=== PATIENT | male | born 1965 | race Caucasian/White ===

== ENCOUNTER 2018-04-10 14:10 | Inpatient (IN) | payer OTHER ==
[2018-04-10 14:39] VITALS: BMI 27.3
--- NOTE | 2018-04-10 15:18 | HP ---
COWS - Scale Resting Pulse: 0= [place] 80 or Below Sweatin= Chills/Flushing Restless Observation: 1= Difficult to Sit Still Pupil Size: 1= Pupils >than Normal Bone or Joint Aches: 2= Severe Diffuse Aches Runny Nose/ Eye Tearin= Runny Nose/Eyes GI Upset > 30mins: 2= Nausea/Diarrhea Tremor Observation: 2= Slight Tremor Visible Yawning Observation: 1= 1-2x During Session Anxiety or Irritability: 2=Irritable/Anxious Goose Flesh Skin: 0=Smooth Skin COWS Score: 14 Admission ROS S - HPI Chief Complaint: need help to stop using heroin,crack and marijuana Allergies/Adverse Reactions: Allergies Allergy/AdvReac Type Severity Reaction Status Date / Time No Known Allergies Allergy Verified 04/10/18 14:49 History of Present Illness: this 53 years old male with heroin,cocaine and marijuana dependence,seeking detox,withdrawal symptom,last dtox 2007 in [facility] seizure last 2 years ago pain in both knees s/p arthroscopic surgery right knee in 2011 no significant period of sobriety lesion of left index and right middle toe plan to go to working program after detox Exam Limitations: No Limitations - Ebola screening Have you traveled outside of the country in the last 21 days: No Have you had contact with anyone from an Ebola affected area: No Have you been sick,other than usual withdrawal symptoms: No Do you have a fever: No - Review of Systems Constitutional: Chills, Loss of Appetite, Malaise, Night Sweats, Changes in sleep, Weakness EENT: reports: Tearing, Nose Congestion Respiratory: reports: No Symptoms reported Cardiac: reports: No Symptoms Reported GI: reports: Nausea, Poor Appetite, Indigestion, Abdominal cramping : reports: No Symptoms Reported Musculoskeletal: reports: Joint Pain, Muscle Pain, Joint Stiffness Integumentary: reports: Dryness Neuro: reports: Headache, Tremors Endocrine: reports: No Symptoms Reported Hematology: reports: No Symptoms Reported Psychiatric: reports: No Sypmtoms Reported, Judgement Intact, Mood/Affect Appropiate, Orientated x3 Patient History - Patient Medical History Hx Anemia: No Hx Asthma: No Hx Chronic Obstructive Pulmonary Disease (COPD): No Hx Cancer: No Hx Cardiac Disorders: No Hx Congestive Heart Failure: No Hx Hypertension: No Hx Hypercholesterolemia: No Hx Pacemaker: No HX Cerebrovascular Accident: No Hx Seizures: Yes (last 2015) Hx Dementia: No Hx Diabetes: No Hx Gastrointestinal Disorders: No Hx Liver Disease: No Hx Genitourinary Disorders: No Hx Sexually Transmitted Disorders: No Hx Renal Disease (ESRD): No Hx Thyroid Disease: No Hx Human Immunodeficiency Virus (HIV): No (last 02/26 ) Hx Hepatitis C: No Hx Depression: No Hx Suicide Attempt: No Hx Bipolar Disorder: No Hx Schizophrenia: No Other Medical History: no sucidal,no homicidal - Patient Surgical History Past Surgical History: Yes Hx Orthopedic Surgery: Yes (arthroscopic surgery of right knee in 2011 fot torn meniscus) - PPD History Previous Implant?: Yes Documented Results: Negative w/o proof Implanted On Prior [facility] Admission?: No PPD to be Administered?: Yes - Smoking Cessation Smoking history: Current every day smoker Have you smoked in the past 12 months: Yes Aproximately how many cigarettes per day: 5 Hx Chewing Tobacco Use: No Initiated information on smoking cessation: Yes 'Breaking Loose' booklet given: 04/10/18 - Substance & Tx. History Hx Alcohol Use: No Hx Substance Use: Yes Substance Use Type: Cocaine, Heroin, Marijuana Hx Substance Use Treatment: Yes (2007 [facility]) - Substances Abused Heroin Route: Inhalation Frequency: Daily Amount used: 14 bags Age of first use: 22 Date of Last Use: 04/10/18 Crack Route: Smoking Frequency: 3-6 times per week Amount used: $20 Age of first use: 31 Date of Last Use: 04/09/18 Marijuana Route: Smoking Frequency: 3-6 times per week Amount used: $5 Age of first use: 22 Date of Last Use: 04/09/18 Family Disease History - Family Disease History Family History: Denies Admission Physical Exam S - Vital Signs Vital Signs: Vital Signs - 24 hr 04/10/18 14:37 Temperature 98.8 F Pulse Rate 58 L Respiratory 20 Rate Blood Pressure 122/72 - Physical General Appearance: Yes: Moderate Distress, Tremorous, Anxious HEENTM: Yes: Normal ENT Inspection, RUPERT, Pharynx Normal Respiratory: Yes: Lungs Clear, Normal Breath Sounds, No Respiratory Distress Neck: Yes: Within Normal Limits, Supple, Trachea in good position Breast: Yes: Within Normal Limits Cardiology: Yes: Regular Rhythm, Regular Rate, S1, S2, Bradycardia Abdominal: Yes: Within Normal Limits, Normal Bowel Sounds, Non Tender, Flat, Soft Genitourinary: Yes: Within Normal Limits Back: Yes: Muscle Spasm Musculoskeletal: Yes: Back pain, Muscle Pain Extremities: Yes: Tremors Neurological: Yes: paddock judge II-XII NML intact, Fully Oriented, Alert, Motor Strength 5/5 Integumentary: Yes: Dry Lymphatic: Yes: Within Normal Limits - Diagnostic (1) Opioid dependence with withdrawal Current Visit: Yes Status: Acute (2) Cocaine dependence Current Visit: Yes Status: Acute (3) Cannabis dependence Current Visit: Yes Status: Acute (4) Nicotine dependence Current Visit: Yes Status: Acute (5) Pain in both knees Current Visit: Yes Status: Acute (6) Status post arthroscopic surgery of right knee Current Visit: Yes Status: Acute (7) Abrasion of left index finger Current Visit: Yes Status: Acute Cleared for Admission [facility] - Detox or Rehab [facility] Level of Care: Medically Managed Detox Regimen/Protocol: Methadone [facility] Breath Alcohol Content Breath Alcohol Content: 0 Urine Drug Screen - Results Drug Screen Negative: No Urine Drug Screen Results: THC-Marijuana, NIK-Cocaine, OPI-Opiates, MTD- Methadone, OXY-Oxycodone, FEN-Fentanyl
[2018-04-10] MEDS ORDERED: MAG HYDROX/AL HYDROX/SIMETH 30 ML UNIT-DOSE CUP PO PRN (15:34)
[2018-04-10] MEDS ORDERED: MAGNESIUM HYDROX 2400MG/30ML ORAL SUSPENSION 30 ML CUP PO PRN (15:34)
[2018-04-10] MEDS ORDERED: P-EPHED 60MG/TRIPROLIDI 2.5MG TABLET PO PRN (15:34)
[2018-04-10] MEDS ORDERED: LOPERAMIDE HCL 2 MG CAPSULE PO PRN (15:34)
[2018-04-10] MEDS ORDERED: MENTHOL/PHENOL 1 EACH UD MM PRN (15:34)
[2018-04-10] MEDS ORDERED: MAGNESIUM CITRATE 300 ML BOTTLE PO PRN (15:34)
[2018-04-10] MEDS ORDERED: guaiFENesin/D-METHORPHAN HB 10 ML UNIT-DOSE CUPS PO PRN (15:34)
[2018-04-10] MEDS ORDERED: ACETAMINOPHEN 325 MG TABLET (FP) PO PRN (15:34)
[2018-04-10] MEDS ORDERED: IBUPROFEN 400 MG TABLET (FP) PO PRN (15:34)
[2018-04-10] MEDS ORDERED: METHADONE HCL 10 MG TABLET (FOR DETOX USE ONLY) PO ONE ×2 (16:00→23:00)
[2018-04-10] MEDS: diazePAM 5 MG TABLET PO PRN ×2 (16:49→22:07)
[2018-04-10] MEDS: CYCLOBENZAPRINE HCL 10 MG TABLET (FP) PO PRN ×2 (20:14→22:07)
[2018-04-10] MEDS: TOLNAFTATE 1% CREAM 15 GM TUBE TP SCH (22:06)
[2018-04-10] MEDS: THIAMINE HCL 100 MG TABLET (FP) PO SCH (22:07)
[2018-04-10] MEDS: cloNIDine HCL 0.1 MG TABLET PO SCH (22:07)
[2018-04-11 00:43] LABS: URINE APPEARANCE TURBID; URINE BILIRUBIN NEGATIVE (<2.0 mg/dL); URINE COLOR YELLOW; URINE GLUCOSE (UA) NEGATIVE (NEGATIVE); URINE KETONE NEGATIVE (NEGATIVE); URINE LEUK ESTERASE NEGATIVE (NEGATIVE); URINE NITRITE NEGATIVE (NEGATIVE); URINE PROTEIN NEGATIVE (NEGATIVE); URINE UROBILINOGEN NEGATIVE mg/dL (0.2-1.0)
[2018-04-11] MEDS: diazePAM 5 MG TABLET PO PRN ×4 (07:20→22:25)
[2018-04-11] MEDS ORDERED: METHADONE HCL 10 MG TABLET (FOR DETOX USE ONLY) PO ONE (10:00)
[2018-04-11] MEDS: PRENATAL VITAMINS W/ FOLIC ACID TABLET (FP) PO SCH (10:17)
[2018-04-11] MEDS: cloNIDine HCL 0.1 MG TABLET PO SCH (10:18)
[2018-04-11] MEDS: TOLNAFTATE 1% CREAM 15 GM TUBE TP SCH ×2 (10:19→22:25)
--- NOTE | 2018-04-11 10:20 | PN ---
BHS COWS - Scale Resting Pulse: 0= [place] 80 or Below Sweatin=Flushed/Facial Moisture Restless Observation: 1= Difficult to Sit Still Pupil Size: 1= Pupils >than Normal Bone or Joint Aches: 2= Severe Diffuse Aches Runny Nose/ Eye Tearin= None GI Upset > 30mins: 2= Nausea/Diarrhea Tremor Observation of Outstretched Hands: 0= None Yawning Observation: 0= None Anxiety or Irritability: 2=Irritable/Anxious Goose Flesh Skin: 0=Smooth Skin COWS Score: 10 BHS Progress Note (SOAP) Subjective: PATIENT C/O CHILLS, SWEATING, ANXIETY AND NAUSEA/DIARRHEA. PATIENT ALSO C/O BLISTER TO RIGHT 3RD TOE. Objective: 04/11/18 10:16 Vital Signs Temperature 97.9 F 04/11/18 09:14 Pulse Rate 67 04/11/18 09:23 Respiratory Rate 18 04/11/18 09:23 Blood Pressure 109/67 04/11/18 09:23 O2 Sat by Pulse Oximetry (%) Laboratory Tests 04/10/18 16:03 Urine Color Yellow Urine Appearance Turbid Urine pH 5.0 Ur Specific [place] 1.030 Urine Protein Negative Urine Glucose (UA) Negative Urine Ketones Negative Urine Blood Negative Urine Nitrite Negative Urine Bilirubin Negative Urine Urobilinogen Negative Ur Leukocyte Esterase Negative SKIN WARM AND MOIST CAR S1S2 RESP CTA BL EXT FULL ROM, +OPEN BLISTER IN BETWEEN 2ND AND 3RD TOE WITH SURROUNDING DRY CRACKED SKIN. NO FOUL SMELL, OR DISCHARGE NOTED. ALERT AND ORIENTED X 3 ANXIOUS AND DIFFICULT FOR PATIENT TO SIT STILL Assessment: 04/11/18 10:19 WITHDRAWAL SX CELLULITIS/BLISTER RIGHT 3RD TOE Plan: CONTINUE DETOX ORDERED ENCOURAGE ORAL FLUIDS CONTINUE TO MONITOR CLINICALLY START KEFLEX 500MG BID X 7DAYS
[2018-04-11 10:26] LABS: HEMATOCRIT 46.5 % (35.4-49); HEMOGLOBIN 14.8 GM/dL (11.7-16.9); MCHC 31.7 g/dl (32.0-35.9); MEAN CELL VOLUME 94.6 fl (80-96); MEAN PLT VOLUME 11.1 fl (7.5-11.1); PLATELET COUNT 208 K/MM3 (134-434); RBC 4.91 M/mm3 (4.00-5.60); RDW 13.8 % (11.9-15.9); WHITE BLOOD COUNT 10.1 K/mm3 (4.0-10.0)
[2018-04-11 10:43] LABS: ALBUMIN 3.6 g/dl (3.4-5.0); ALK PHOS 86 U/L (45-117); ANION GAP 9 MMOL/L (8-16); BILIRUBIN,TOTAL 0.4 mg/dL (0.2-1); BLOOD UREA NITROGEN 16 mg/dL (7-18); CHLORIDE 104 mmol/L (98-107); CO2 29 mmol/L (21-32); CREATININE 1.4 mg/dL (0.55-1.3); GLUCOSE,RANDOM 90 mg/dL (74-106); POTASSIUM 4.2 mmol/L (3.5-5.1); SGOT/AST 24 U/L (15-37); SGPT/ALT 23 U/L (13-61); SODIUM 142 mmol/L (136-145); TOT PROT 7.2 g/dl (6.4-8.2)
[2018-04-11] MEDS: CEPHALEXIN MONOHYDRATE 500 MG CAPSULE (UD) PO SCH ×2 (10:45→22:25)
--- NOTE | 2018-04-11 15:11 | EKG ---
Test Reason : Blood Pressure : / mmHG Vent. Rate : 051 BPM Atrial Rate : 051 BPM P-R Int : 176 ms QRS Dur : 088 ms QT Int : 418 ms P-R-T Axes : 071 073 057 degrees QTc Int : 385 ms SINUS BRADYCARDIA OTHERWISE NORMAL ECG NO PREVIOUS ECGS AVAILABLE Confirmed by CALIN RUBIO, MELLO ([id number]) on 04/11/2018 3:10:24 PM Referred By: Confirmed By:MELLO LAYTON MD
[2018-04-11] MEDS: THIAMINE HCL 100 MG TABLET (FP) PO SCH (22:25)
[2018-04-11] MEDS: MELATONIN 5 MG TABLETS PO PRN (22:25)
[2018-04-12] MEDS: diazePAM 5 MG TABLET PO PRN ×4 (06:28→22:19)
[2018-04-12] MEDS: CYCLOBENZAPRINE HCL 10 MG TABLET (FP) PO PRN ×2 (09:54→17:37)
[2018-04-12] MEDS: CEPHALEXIN MONOHYDRATE 500 MG CAPSULE (UD) PO SCH ×2 (09:54→22:19)
[2018-04-12] MEDS: PRENATAL VITAMINS W/ FOLIC ACID TABLET (FP) PO SCH (09:55)
[2018-04-12] MEDS: IBUPROFEN 600 MG TABLET (FP) PO PRN ×2 (09:55→17:37)
[2018-04-12] MEDS: TOLNAFTATE 1% CREAM 15 GM TUBE TP SCH ×2 (09:56→22:19)
[2018-04-12] MEDS ORDERED: METHADONE HCL 5 MG TABLET (FOR DETOX USE ONLY) PO ONE (10:00)
--- NOTE | 2018-04-12 11:30 | PN ---
BHS COWS - Scale Resting Pulse: 0= [place] 80 or Below Sweatin=Flushed/Facial Moisture Restless Observation: 1= Difficult to Sit Still Pupil Size: 2= Moderately Dilated Bone or Joint Aches: 2= Severe Diffuse Aches Runny Nose/ Eye Tearin= None GI Upset > 30mins: 0= None Tremor Observation of Outstretched Hands: 0= None Yawning Observation: 0= None Anxiety or Irritability: 2=Irritable/Anxious Goose Flesh Skin: 0=Smooth Skin COWS Score: 9 BHS Progress Note (SOAP) Subjective: PATIENT SWEATING, ANXIETY AND BODY ACHES. Objective: 04/12/18 11:28 Vital Signs Temperature 98.4 F 04/12/18 09:31 Pulse Rate 60 04/12/18 09:31 Respiratory Rate 18 04/12/18 09:31 Blood Pressure 95/58 L 04/12/18 09:31 O2 Sat by Pulse Oximetry (%) Laboratory Tests 04/10/18 04/11/18 04/11/18 16:03 06:00 06:00 WBC 10.1 H RBC 4.91 Hgb 14.8 Hct 46.5 MCV 94.6 MCH 30.0 MCHC 31.7 L RDW 13.8 Plt Count 208 MPV 11.1 Sodium 142 Potassium 4.2 Chloride 104 Carbon Dioxide 29 Anion Gap 9 BUN 16 Creatinine 1.4 H Creat Clearance w eGFR 53.22 Random Glucose 90 Calcium 9.0 Total Bilirubin 0.4 AST 24 ALT 23 Alkaline Phosphatase 86 Total Protein 7.2 Albumin 3.6 Urine Color Yellow Urine Appearance Turbid Urine pH 5.0 Ur Specific [place] 1.030 Urine Protein Negative Urine Glucose (UA) Negative Urine Ketones Negative Urine Blood Negative Urine Nitrite Negative Urine Bilirubin Negative Urine Urobilinogen Negative Ur Leukocyte Esterase Negative RPR Titer 04/11/18 06:00 WBC RBC Hgb Hct MCV MCH MCHC RDW Plt Count MPV Sodium Potassium Chloride Carbon Dioxide Anion Gap BUN Creatinine Creat Clearance w eGFR Random Glucose Calcium Total Bilirubin AST ALT Alkaline Phosphatase Total Protein Albumin Urine Color Urine Appearance Urine pH Ur Specific [place] Urine Protein Urine Glucose (UA) Urine Ketones Urine Blood Urine Nitrite Urine Bilirubin Urine Urobilinogen Ur Leukocyte Esterase RPR Titer Nonreactive PE: SKIN WARM WITH FACIAL MOISTURE ALERT AND ORIENTED X 3 ANXIOUS WITH MILD RESTLESSNESS EXT FULL ROM AMB AD MISHA Assessment: 04/12/18 11:29 WITHDRAWAL SX Plan: CONTINUE DETOX REGIMEN ENCOURAGE ORAL FLUIDS CONTINUE TO MONITOR CLINICALLY
--- NOTE | 2018-04-12 13:35 | CONSULT ---
[facility] Psychiatric Consult - Data Date of interview: 04/12/18 Admission source: [facility] Identifying data: First admission to [facility] for this 53 y/o male seeking detoxification treatment on for heroin, cocaine (crack) and cannabis dependence. Patient is single, a father of two, domiciled, unemployed and occasionally supported by relatives. Substance Abuse History: Confirmed by the patient in this interivew. Details in current [facility] report : Smoking history: Current every day smoker. Have you smoked in the past 12 months: Yes. Aproximately how many cigarettes per day: 5. Hx Chewing Tobacco Use: No. Initiated information on smoking cessation: Yes. 'Breaking Loose' booklet given: 04/10/18. - Substance & Tx. History. Hx Alcohol Use: No. Hx Substance Use: Yes. Substance Use Type: Cocaine, Heroin, Marijuana. Hx Substance Use Treatment: Yes ([address] [place] [address]). - Substances Abused. Heroin. Route: Inhalation. Frequency: Daily. Amount used: 14 bags. Age of first use: 22. Date of Last Use: 04/10/18. Crack. Route: Smoking. Frequency: 3-6 times per week. Amount used: $20. Age of first use: 31. Date of Last Use: 04/09/18. Marijuana. Route: Smoking. Frequency: 3-6 times per week. Amount used: $5. Age of first use: 22. Date of Last Use: 04/09/18 Medical History: Arthritis, arthroscopic surgery (torn meniscus in right knee) and seizure disorder (on levetiracetam but not compliant). Psychiatric History: Patient admits to a history of one psychiatric hospitalization ([facility]). Diagnosed with MDD and Anxiety Disorder. Mr Yeung declares that he used to receive psychotropic medications during his incarceration (27 years in skilled nursing for homicide) : zolpidem, xanax and other unnamed medications. No history of OPD care. Patient denies history of suicide attempts. Physical/Sexual Abuse/Trauma History: Traumatized by 27 years of incarceration. Patient declines to discuss events of his childhood. Additional Comment: Urine Drug Screen Results: THC-Marijuana, NIK-Cocaine, OPI- Opiates, MTD-Methadone, OXY-Oxycodone, FEN-Fentanyl. Noted. Mental Status Exam - Mental Status Exam Alert and Oriented to: Time, Place, Person Cognitive Function: Good Patient Appearance: Well Groomed (short, muscular frame) Mood: Nervous, Withdrawn, Anxious Affect: Mood Congruent Patient Behavior: Appropriate, Cooperative Speech Pattern: Clear, Appropriate Voice Loudness: Normal Thought Process: Intact, Goal Oriented Thought Disorder: Not Present Hallucinations: Denies Suicidal Ideation: Denies Homicidal Ideation: Denies Insight/Judgement: Poor Appetite: Good Muscle strength/Tone: Normal Gait/Station: Normal Psychiatric Findings - Problem List ([place] 1, 2,3) (1) Opioid dependence with withdrawal Current Visit: Yes Status: Acute (2) Cannabis dependence Current Visit: Yes Status: Acute (3) Cocaine dependence Current Visit: Yes Status: Acute (4) Nicotine dependence Current Visit: Yes Status: Acute (5) Substance induced mood disorder Current Visit: Yes Status: Acute - Initial Treatment Plan Initial Treatment Plan: Psychoeducation. Detoxification in progress. NA fellowship recommended. Sleep hygiene. Patient is made aware of medically assisted [facility] treatment available after detoxification for relapse prevention ( methadone MMTP, naltrexone and suboxone maintenance). Psychotherapy (group, individual, supportive). Referral to a psychiatrist (catchment area) is strongly advised (patient's wish as well). Observation.
[2018-04-12] MEDS: THIAMINE HCL 100 MG TABLET (FP) PO SCH (22:19)
[2018-04-12] MEDS: MELATONIN 5 MG TABLETS PO PRN (22:20)
[2018-04-13] MEDS: diazePAM 5 MG TABLET PO PRN ×2 (07:28→14:51)
[2018-04-13] MEDS: IBUPROFEN 600 MG TABLET (FP) PO PRN ×3 (07:29→22:32)
[2018-04-13] MEDS: CYCLOBENZAPRINE HCL 10 MG TABLET (FP) PO PRN ×2 (07:29→17:32)
[2018-04-13] MEDS ORDERED: METHADONE HCL 5 MG TABLET (FOR DETOX USE ONLY) PO ONE (10:00)
[2018-04-13] MEDS: PRENATAL VITAMINS W/ FOLIC ACID TABLET (FP) PO SCH (10:23)
[2018-04-13] MEDS: TOLNAFTATE 1% CREAM 15 GM TUBE TP SCH ×2 (10:23→22:34)
[2018-04-13] MEDS: CEPHALEXIN MONOHYDRATE 500 MG CAPSULE (UD) PO SCH ×2 (10:24→22:34)
--- NOTE | 2018-04-13 12:03 | PN ---
Psychiatric Progress Note Vital Signs: Vital Signs Period Temp Pulse Resp BP Sys/[place] Pulse Ox Last 24 Hr 96.9 F-99.1 F 54-59 18-18 95-109/53-67 Date of Session: 04/13/18 Chief Complaint:: " I need medication to sleep at night ". Current Medications: Active Medications Generic Name Dose Route Start Last Admin Trade Name Freq PRN Reason Stop Dose Admin Acetaminophen 650 mg 04/10/18 15:34 Tylenol - PO Q4H PRN FEVER Al Hydroxide/Mg Hydroxide 30 ml 04/10/18 15:34 Mylanta Oral Suspension - PO Q6H PRN DYSPEPSIA Cephalexin HCl 500 mg 04/11/18 10:40 04/13/18 10:24 Keflex - PO 04/18/18 10:39 500 mg BID KAL Administration Cyclobenzaprine HCl 10 mg 04/10/18 15:37 04/13/18 07:29 Flexeril - PO 10 mg TID PRN Administration MUSCLE SPASMS Diazepam 10 mg 04/10/18 15:34 04/13/18 07:28 Valium - PO 04/13/18 15:33 10 mg Q4H PRN Administration WITHDRAWAL(CONT SUBST) Eucalyptus/Menthol/Phenol/Sorbitol 1 each 04/10/18 15:34 Cepastat Lozenge - MM Q4H PRN SORE THROAT Guaifenesin 10 ml 04/10/18 15:34 Robitussin Dm - PO Q6H PRN COUGH Ibuprofen 600 mg 04/10/18 15:39 04/13/18 07:29 Motrin - PO 600 mg Q6H PRN Administration PAIN LEVEL 4 - 6 Loperamide HCl 4 mg 04/10/18 15:34 Imodium - PO Q6H PRN DIARRHEA Magnesium Citrate 300 ml 04/10/18 15:34 Citroma - PO Q48H PRN CONSTIPATION Magnesium Hydroxide 30 ml 04/10/18 15:34 Milk Of Magnesia - PO DAILY PRN CONSTIPATION Methadone HCl 5 mg 04/15/18 06:00 Dolophine - PO 04/15/18 06:01 ONCE@0600 ONE Methadone HCl 10 mg 04/14/18 10:00 Dolophine - PO 04/14/18 10:01 ONCE ONE Multivit/Folic Acid/Iron 1 tab 04/11/18 10:00 04/13/18 10:23 Vitamins ([facility]) - PO 1 tab DAILY KAL Administration Pseudoephedrine/Triprolidine 1 combo 04/10/18 15:34 Actifed - PO TID PRN NASAL CONGESTION Thiamine HCl 100 mg 04/10/18 22:00 04/12/18 22:19 Vitamin B1 - PO 100 mg HS KAL Administration Tolnaftate 1 applic 04/10/18 22:00 04/13/18 10:23 Tinactin 1% Cream - TP 1 applic BID KAL Administration Zolpidem Tartrate 10 mg 04/13/18 22:00 Ambien - PO HS PRN INSOMNIA Psychiatric Treatment Plan - Problem List (1) Opioid dependence with withdrawal Current Visit: Yes (2) Cannabis dependence Current Visit: Yes (3) Cocaine dependence Current Visit: Yes (4) Nicotine dependence Current Visit: Yes (5) Substance induced mood disorder Current Visit: Yes
--- NOTE | 2018-04-13 12:39 | PN ---
BHS COWS - Scale Resting Pulse: 0= [place] 80 or Below Sweatin= Chills/Flushing Restless Observation: 1= Difficult to Sit Still Pupil Size: 0= Normal to Room Light Bone or Joint Aches: 2= Severe Diffuse Aches Runny Nose/ Eye Tearin= Nasal Congestion GI Upset > 30mins: 0= None Tremor Observation of Outstretched Hands: 1= Tremor [place] Line, Not Seen Yawning Observation: 2= >3x During Session Anxiety or Irritability: 2=Irritable/Anxious Goose Flesh Skin: 0=Smooth Skin COWS Score: 10 BHS Progress Note (SOAP) Subjective: interrupted sleep, fatigue, anxious, dizziness Objective: 04/13/18 12:35 Vital Signs Temperature 99.1 F 04/13/18 09:15 Pulse Rate 54 L 04/13/18 09:15 Respiratory Rate 18 04/13/18 09:15 Blood Pressure 95/53 L 04/13/18 09:15 O2 Sat by Pulse Oximetry (%) Laboratory Last Values WBC 10.1 K/mm3 (4.0-10.0) H 04/11/18 06:00 RBC 4.91 M/mm3 (4.00-5.60) 04/11/18 06:00 Hgb 14.8 GM/dL (11.7-16.9) 04/11/18 06:00 Hct 46.5 % (35.4-49) 04/11/18 06:00 MCV 94.6 fl (80-96) 04/11/18 06:00 MCH 30.0 pg (25.7-33.7) 04/11/18 06:00 MCHC 31.7 g/dl (32.0-35.9) L 04/11/18 06:00 RDW 13.8 % (11.9-15.9) 04/11/18 06:00 Plt Count 208 K/MM3 (134-434) 04/11/18 06:00 MPV 11.1 fl (7.5-11.1) 04/11/18 06:00 Sodium 142 mmol/L (136-145) 04/11/18 06:00 Potassium 4.2 mmol/L (3.5-5.1) 04/11/18 06:00 Chloride 104 mmol/L (98-107) 04/11/18 06:00 Carbon Dioxide 29 mmol/L (21-32) 04/11/18 06:00 Anion Gap 9 MMOL/L (8-16) 04/11/18 06:00 BUN 16 mg/dL (7-18) 04/11/18 06:00 Creatinine 1.4 mg/dL (0.55-1.3) H 04/11/18 06:00 Creat Clearance w eGFR 53.22 (>60) 04/11/18 06:00 Random Glucose 90 mg/dL (74-106) 04/11/18 06:00 Calcium 9.0 mg/dL (8.5-10.1) 04/11/18 06:00 Total Bilirubin 0.4 mg/dL (0.2-1) 04/11/18 06:00 AST 24 U/L (15-37) 04/11/18 06:00 ALT 23 U/L (13-61) 04/11/18 06:00 Alkaline Phosphatase 86 U/L (45-117) 04/11/18 06:00 Total Protein 7.2 g/dl (6.4-8.2) 04/11/18 06:00 Albumin 3.6 g/dl (3.4-5.0) 04/11/18 06:00 Urine Color Yellow 04/10/18 16:03 Urine Appearance Turbid 04/10/18 16:03 Urine pH 5.0 (5.0-8.0) 04/10/18 16:03 Ur Specific [place] 1.030 (1.010-1.035) 04/10/18 16:03 Urine Protein Negative (NEGATIVE) 04/10/18 16:03 Urine Glucose (UA) Negative (NEGATIVE) 04/10/18 16:03 Urine Ketones Negative (NEGATIVE) 04/10/18 16:03 Urine Blood Negative (NEGATIVE) 04/10/18 16:03 Urine Nitrite Negative (NEGATIVE) 04/10/18 16:03 Urine Bilirubin Negative (<2.0 mg/dL) 04/10/18 16:03 Urine Urobilinogen Negative mg/dL (0.2-1.0) 04/10/18 16:03 Ur Leukocyte Esterase Negative (NEGATIVE) 04/10/18 16:03 RPR Titer Nonreactive (NONREACTIVE) 04/11/18 06:00 Aox3 no distress no adventitious breath sounds full ROM ambulatory Assessment: withdrawal sx Plan: increase fluids continue to monitor continue detox
--- NOTE | 2018-04-13 16:04 | PN ---
[facility] Progress Note Note: Patient reports to rn he was receiving keppra as out patient for seizures, patient does not recall dosage , last seizure, and last time he has taken medication or name of the medical provider prescribing the medication. Patient is a poor historian. Patient Aox3 no distress, stable, negative neuro symptoms. keppra levels ordered continue to monitor
[2018-04-13] MEDS ORDERED: ZOLPIDEM TARTRATE 10 MG TABLET (PARK CARE ONLY) PO PRN (22:00)
[2018-04-13] MEDS: THIAMINE HCL 100 MG TABLET (FP) PO SCH (22:32)
[2018-04-14 06:11] VITALS: BP 100/65; PULSE 59; TEMP 97
[2018-04-14] MEDS: CYCLOBENZAPRINE HCL 10 MG TABLET (FP) PO PRN (06:30)
[2018-04-14] MEDS: CEPHALEXIN MONOHYDRATE 500 MG CAPSULE (UD) PO SCH (09:00)
[2018-04-14] MEDS ORDERED: METHADONE HCL 10 MG TABLET (FOR DETOX USE ONLY) PO ONE (10:00)
--- NOTE | 2018-04-14 12:47 | DS ---
[facility] Detox Discharge Summary Admission Date: 04/10/18 Discharge Date: 04/14/18 - History Present History: Cannabis Dependence, Cocaine Dependence, Opioid Dependence Additional Comments: Patient is A/A/Ox3, in nad, ambulatory. Patient demanded to leave AMA. Box Loader spoke with patient and encouraged him to complete detox and get early discharge tomorrow at 0600. 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 Patient decided to leave AMA. Patient instructed to call 911 if feeling sick or any withdrawal symptoms and to see his PCP within 3 days. Patient also informed about his lab results and instructed to drink more water and follow up with his PCP. Patient verbalized understanding. Pertinent Past History: Opioid dependence Cannabis dependence Cocaine dependence Nicotine dependence - Physical Exam Results Vital Signs: Vital Signs Temperature 97 F L 04/14/18 06:10 Pulse Rate 59 L 04/14/18 06:10 Respiratory Rate 18 04/14/18 06:10 Blood Pressure 100/65 04/14/18 06:10 O2 Sat by Pulse Oximetry (%) Pertinent Admission Physical Exam Findings: Withdrawal symptoms Laboratory Tests 04/10/18 04/11/18 04/11/18 16:03 06:00 06:00 WBC 10.1 H RBC 4.91 Hgb 14.8 Hct 46.5 MCV 94.6 MCH 30.0 MCHC 31.7 L RDW 13.8 Plt Count 208 MPV 11.1 Sodium 142 Potassium 4.2 Chloride 104 Carbon Dioxide 29 Anion Gap 9 BUN 16 Creatinine 1.4 H Creat Clearance w eGFR 53.22 Random Glucose 90 Calcium 9.0 Total Bilirubin 0.4 AST 24 ALT 23 Alkaline Phosphatase 86 Total Protein 7.2 Albumin 3.6 Urine Color Yellow Urine Appearance Turbid Urine pH 5.0 Ur Specific [place] 1.030 Urine Protein Negative Urine Glucose (UA) Negative Urine Ketones Negative Urine Blood Negative Urine Nitrite Negative Urine Bilirubin Negative Urine Urobilinogen Negative Ur Leukocyte Esterase Negative RPR Titer 04/11/18 06:00 WBC RBC Hgb Hct MCV MCH MCHC RDW Plt Count MPV Sodium Potassium Chloride Carbon Dioxide Anion Gap BUN Creatinine Creat Clearance w eGFR Random Glucose Calcium Total Bilirubin AST ALT Alkaline Phosphatase Total Protein Albumin Urine Color Urine Appearance Urine pH Ur Specific [place] Urine Protein Urine Glucose (UA) Urine Ketones Urine Blood Urine Nitrite Urine Bilirubin Urine Urobilinogen Ur Leukocyte Esterase RPR Titer Nonreactive Labs reviewed: prerenal azotemia noted. Patient instructed to drink plenty of water for hydration and to follow up with his PCP within 1-2 weeks. - Medication Discharge Medications: Ambulatory Orders Ibuprofen [Ibu] 800 mg PO TID PRN 04/10/18 Cephalexin [Keflex] 500 mg PO BID #7 capsule 04/14/18 - Diagnosis (1) Acute prerenal azotemia Status: Acute (2) Cannabis dependence Status: Chronic (3) Cocaine dependence Status: Chronic Qualifiers: Substance use status: uncomplicated Qualified Code(s): F14.20 - Cocaine dependence, uncomplicated (4) Nicotine dependence Status: Chronic Qualifiers: Nicotine product type: cigarettes (5) Opioid dependence with withdrawal Status: Acute - AMA Did Patient Leave Against Medical Advice: Yes (Call 911 right away if withdrawal symptoms or feeling sick)
[2018-04-15] MEDS ORDERED: METHADONE HCL 5 MG TABLET (FOR DETOX USE ONLY) PO ONE (06:00)
== END 2018-04-14 09:06 | disposition left against medical advice (07) | DRG 770 ==
LOC: YASAS 14:10 → Y3N 15:11
PROC: HZ2ZZZZ Detoxification Services for Substance Abuse Treatment (ICD-10-PCS; principal; 2018-04-10)
DX: F11.23 Opioid dependence with withdrawal (principal); F14.20 Cocaine dependence, uncomplicated; F12.20 Cannabis dependence, uncomplicated; F17.210 Nicotine dependence, cigarettes, uncomplicated; F19.24 Other psychoactive substance dependence with psychoactive substance-induced mood disorder; R56.9 Unspecified convulsions; R79.89 Other specified abnormal findings of blood chemistry; L03.115 Cellulitis of right lower limb; S90.424A Blister (nonthermal), right lesser toe(s), initial encounter; M25.561 Pain in right knee; M25.562 Pain in left knee; S60.411A Abrasion of left index finger, initial encounter; X58.XXXA Exposure to other specified factors, initial encounter; Y93.89 Activity, other specified; Y92.89 Other specified places as the place of occurrence of the external cause; Y99.8 Other external cause status
CPT/HCPCS: 36415; 80053; 80177; 81003; 85027; 86593; 93005; 93010; J0735